=== PATIENT | male | born 1975 | race African-American/Black ===

== ENCOUNTER → 2017-09-06 | Outpatient (CLI) | payer BC | END | disposition home or self-care (01) | LOC: PCVCIMAG 14:33 | DX: I10 Essential (primary) hypertension (principal); M79.605 Pain in left leg; M79.89 Other specified soft tissue disorders; I25.2 Old myocardial infarction; E78.5 Hyperlipidemia, unspecified; G47.33 Obstructive sleep apnea (adult) (pediatric) | CPT/HCPCS: 93017; 93971 ==